=== PATIENT | male | born 1955 | race African-American/Black ===

== ENCOUNTER 2017-06-02 14:06 | Emergency (ER) | payer MEDICARE ==
[2017-06-02 18:06] LABS: Basophils % (Auto) 0.9 % (0.0-1.8); Eosinophils % (Auto) 0.7 % (0.0-4.3); Hemoglobin 14.9 gm/dl (11.8-15.2); Mean Corpuscular HGB Conc 33 % (32-34); Mean Corpuscular Hemoglobin 31 pg (28-32); Mean Corpuscular Volume 93 fl (84-94); Platelet Count 266 K/mm3 (140-440); Red Blood Count 4.84 M/mm3 (3.65-5.03); Red Cell Distribution Width 12.8 % (13.2-15.2); White Blood Count 5.7 K/mm3 (4.5-11.0)
[2017-06-02 18:23] LABS: Alanine Aminotransferase 13 units/L (7-56); Albumin 4.5 g/dL (3.9-5); Albumin/Globulin Ratio 1.4 %; Alkaline Phosphatase 98 units/L (35-129); Anion Gap 19 mmol/L; BUN/Creatinine Ratio 22.85; Bilirubin,Direct 0.2 mg/dL (0-0.2); Bilirubin,Indirect 0.8 mg/dL; Blood Urea Nitrogen 16 mg/dL (9-20); Calcium 9.5 mg/dL (8.4-10.2); Carbon Dioxide 27 mmol/L (22-30); Chloride 100.1 mmol/L (98-107); Glucose 96 mg/dL (75-100); Potassium 4.8 mmol/L (3.6-5.0); Sodium 141 mmol/L (137-145); Total Protein 7.8 g/dL (6.3-8.2)
[2017-06-02 18:41] LABS: INR 1.01 (0.87-1.13)
--- NOTE | 2017-06-02 18:45 | Cat Scan Report ---
FINAL REPORT PROCEDURE: CT head without contrast. TECHNIQUE: Computerized tomography of the head was performed without contrast material. HISTORY: Closed head injury. COMPARISON: No prior studies are available for comparison. FINDINGS: The ventricles are normal in size. The aragon matter and white matter appear normal. There are no mass lesions. There is no intracranial hemorrhage. The calvarium appears intact. There is opacification of the right mastoid air cells and partial opacification of the right middle ear cavity. The paranasal sinuses are clear as far as visualized. IMPRESSION: Normal study of the brain. Right mastoiditis and otitis media.
[2017-06-02 18:50] LABS: Partial Thromboplastin Time 32.8 Sec. (24.2-36.6)
--- NOTE | 2017-06-02 19:10 | Emergency Department Report ---
ED General Adult HPI - General Chief complaint: Fall Stated complaint: KNEE INJURY Time Seen by Provider: 06/02/17 16:55 Source: patient, EMS Mode of arrival: Ambulatory Limitations: No Limitations - History of Present Illness Initial comments: The patient was sent by primary care physician who is a concern that he is having frequent falls and muscle weakness. The patient does not refer any actual muscle weakness but he does state that he falls frequently. His last fall was 3-4 days ago. He scratched his head. He has no history of any neuromuscular disorder. He has a walker at home. He also uses a cane. He does not complain of any fever or chills or other supplemental symptoms. He states he would like a motorized wheelchair. -: month(s) Location: head Consistency: now resolved Improves with: none Worsens with: none - Related Data Home Medications Medication Instructions Recorded Confirmed Last Taken Hydrochlorothiazide [HCTZ] 25 mg PO DAILY 06/02/17 06/02/17 Unknown Lisinopril [Zestril TAB] 20 mg PO DAILY 06/02/17 06/02/17 Unknown Metoprolol [Lopressor TAB] 25 mg PO DAILY 06/02/17 06/02/17 Unknown Allergies Allergy/AdvReac Type Severity Reaction Status Date / Time No Known Allergies Allergy Unverified 06/02/17 14:41 ED Review of Systems ROS: Stated complaint: KNEE INJURY Other details as noted in HPI Constitutional: denies: chills, fever Eyes: denies: eye pain, eye discharge, vision change ENT: denies: ear pain, throat pain Respiratory: denies: cough, shortness of breath, wheezing Cardiovascular: denies: chest pain, palpitations Endocrine: no symptoms reported Gastrointestinal: denies: abdominal pain, nausea, diarrhea Genitourinary: denies: urgency, dysuria Musculoskeletal: denies: back pain, joint swelling, arthralgia Skin: denies: rash, lesions Neurological: denies: headache, weakness, numbness, paresthesias Psychiatric: denies: anxiety, depression Hematological/Lymphatic: denies: easy bleeding, easy bruising ED Past Medical Hx - Past Medical History Previous Medical History?: Yes Hx Hypertension: Yes - Surgical History Past Surgical History?: Yes Additional Surgical History: spinal surgery - Social History Smoking Status: Never Smoker Substance Use Type: None - Medications Home Medications: Home Medications Medication Instructions Recorded Confirmed Last Taken Type Hydrochlorothiazide [HCTZ] 25 mg PO DAILY 06/02/17 06/02/17 Unknown History Lisinopril [Zestril TAB] 20 mg PO DAILY 06/02/17 06/02/17 Unknown History Metoprolol [Lopressor TAB] 25 mg PO DAILY 06/02/17 06/02/17 Unknown History ED Physical Exam - General Limitations: No Limitations General appearance: alert, in no apparent distress - Head Head exam: Present: normocephalic, other (right frontal abrasion) - Eye Eye exam: Present: normal appearance, PERRL, EOMI - ENT ENT exam: Present: normal exam, mucous membranes moist, other (bilateral impacted cerumen) - Neck Neck exam: Present: normal inspection. Absent: tenderness, meningismus - Respiratory Respiratory exam: Present: normal lung sounds bilaterally. Absent: respiratory distress - Cardiovascular Cardiovascular Exam: Present: regular rate, normal rhythm. Absent: systolic murmur, diastolic murmur, rubs, gallop - GI/Abdominal GI/Abdominal exam: Present: soft, normal bowel sounds. Absent: distended, tenderness, guarding, rebound, rigid - Rectal Rectal exam: Present: deferred - Extremities Exam Extremities exam: Present: full ROM, normal capillary refill, other (some prepatellar soft tissue swelling no effusion noted deformity for range of motion ). Absent: tenderness, calf tenderness - Back Exam Back exam: Present: normal inspection - Neurological Exam Neurological exam: Present: alert, oriented X3, CN II-XII intact. Absent: motor sensory deficit - Psychiatric Psychiatric exam: Present: anxious, flat affect - Skin Skin exam: Present: warm, dry, intact, normal color. Absent: rash ED Course Vital Signs 06/02/17 06/02/17 14:35 14:59 Temperature 97.8 F Pulse Rate 67 Respiratory 16 16 Rate Blood Pressure 133/76 O2 Sat by Pulse 99 Oximetry - Reevaluation(s) Reevaluation #1: Consult for home health will be placed. Patient is referred to a neurologist. I do not find any acute indications for admission. 06/02/17 19:11 ED Medical Decision Making - Lab Data Result diagrams: 06/02/17 17:51 06/02/17 17:51 Laboratory Results - last 24 hr 06/02/17 06/02/17 06/02/17 17:51 17:51 17:51 WBC 5.7 RBC 4.84 Hgb 14.9 Hct 45.0 MCV 93 MCH 31 MCHC 33 RDW 12.8 L Plt Count 266 Lymph % (Auto) 28.9 [place] % (Auto) 8.8 H Eos % (Auto) 0.7 Baso % (Auto) 0.9 Lymph # 1.6 [place] # 0.5 Eos # 0.0 Baso # 0.1 Seg Neutrophils % 60.7 Seg Neutrophils # 3.4 PT 13.2 INR 1.01 APTT 32.8 Sodium 141 Potassium 4.8 Chloride 100.1 Carbon Dioxide 27 Anion Gap 19 BUN 16 Creatinine 0.7 L Estimated GFR > 60 BUN/Creatinine Ratio 22.85 Glucose 96 Calcium 9.5 Total Bilirubin 1.00 Direct Bilirubin 0.2 Indirect Bilirubin 0.8 AST 21 ALT 13 Alkaline Phosphatase 98 Total Protein 7.8 Albumin 4.5 Albumin/Globulin Ratio 1.4 - EKG Data -: EKG Interpreted by Me EKG shows normal: sinus rhythm, axis, intervals, QRS complexes, ST-T waves Rate: normal - EKG Data Interpretation: other (RSR in V1 mildly increased voltage consider left ventricular hypertrophy) - Radiology Data interpreted by me: According to the radiologist there was some opacification of mastoid air cells and occlusion of the right external auditory canal. Somehow this was consistent with otitis according to the radiologist. Neither these findings had any clinical correlation whatsoever. Critical care attestation.: If time is entered above; I have spent that time in minutes in the direct care of this critically ill patient, excluding procedure time. ED Disposition Clinical Impression: Gait disturbance, Frequent falls, Muscular deconditioning Abrasion of forehead Qualifiers: Encounter type: initial encounter Qualified Code(s): S00.81XA - Abrasion of other part of head, initial encounter Contusion of knee, left Qualifiers: Encounter type: initial encounter Qualified Code(s): S80.02XA - Contusion of left knee, initial encounter Disposition: TO HOME OR SELFCARE Is pt being admited?: No Does the pt Need Aspirin: No Condition: Stable Instructions: Weakness (ED) Additional Instructions: Further evaluation with a neurologist as recommended. I will send a home health nurse to her house for further evaluation. Return any acute change or problem. Referrals: LOLA CONTRERAS MD [Primary Care Provider] - 3-5 Days EDI RAMOS MD [Staff Physician] - 3-5 Days Time of Disposition: 19:13
[2017-06-02 22:37] VITALS: BP 128/74
== END 2017-06-02 20:00 | disposition home or self-care (01) ==
LOC: ED 14:06
DX: S00.81XA Abrasion of other part of head, initial encounter (principal); S80.02XA Contusion of left knee, initial encounter; R63.5 Abnormal weight gain; W18.30XA Fall on same level, unspecified, initial encounter; Y93.9 Activity, unspecified; Y92.9 Unspecified place or not applicable; Y99.9 Unspecified external cause status; I10 Essential (primary) hypertension
CPT/HCPCS: 36415; 70450; 80048; 80074; 85025; 85610; 85730; 93005; 93010